=== PATIENT | female | born 1995 ===

== ENCOUNTER 2019-01-15 17:00 | Emergency (ER) | payer MEDICAID ==
[~2019-01-15] VITALS: Ht 149.9 cm; Wt 87.0 kg
[2019-01-15 18:07] VITALS: BP 128/83
--- NOTE | 2019-01-15 19:28 | NUR ---
NIL WHEN CALLED FOR ROOM
== END 2019-01-15 20:51 | disposition left against medical advice (07) ==
LOC: ED 18:20
DX: Z51.81 Encounter for therapeutic drug level monitoring (principal)
CPT/HCPCS: 36415; 80178; 99283